=== PATIENT | female | born 1970 | race Two or more races ===

== ENCOUNTER 2022-02-05 04:45 | Inpatient (IN) | payer SELFPAY ==
[~2022-02-05] VITALS: Ht 165.1 cm; Wt 80.3 kg
--- NOTE | 2022-02-05 05:56 | PHYS DOC ---
Past Medical History Past Surgical History: Other Additional Past Surgical Histo: CYST ON INNER THIGHS (ЕЛЕНА DAVIES MD) Smoking Status: Never Smoker Alcohol Use: None (ЕЛЕНА DAVIES MD) Adult General Chief Complaint Chief Complaint: ABDOMINAL PAIN HPI HPI The patient is a 51-year-old female who presents for evaluation of epigastric and right upper quadrant abdominal discomfort in association with nonbloody vomiting, all with onset last evening about half an hour after eating. Discomfort is constant and radiates to the right back. Nothing seems to make it better or worse. Severity 9 out of 10 at present. 3 episodes of nonbloody vomiting since onset. No fevers, upper respiratory congestion/rhinorrhea, cough, sore throat, shortness of breath or chest pain of any kind, lower abdominal pain of any kind, midline back pain, dysuria, hematuria, polyuria or oliguria, unusual vaginal discharge or bleeding, changes in bowel habits. Patient is alert and appropriately interactive and in no acute distress with appropriate vital signs upon initial evaluation [facility] (ЕЛЕНА DAVIES MD) Review of Systems Review of Systems A 12 point review of systems was completed and was negative except where noted in HPI above. (ЕЛЕНА DAVIES MD) Current Medications Current Medications Current Medications Medications (Trade) Dose Ordered Sig/Nikita Start Time Stop Time Status Last Admin Dose Admin Famotidine (Pepcid Vial) 20 mg 1X ONCE 02/05/22 06:00 02/05/22 06:01 DC 02/05/22 06:00 20 MG Fentanyl Citrate (Fentanyl 2ml Vial) 50 mcg 1X ONCE 02/05/22 06:00 02/05/22 06:01 DC 02/05/22 06:03 35 MCG Multi-Ingredient Mouthwash/Gargle (Gi Cocktail) 20 ml 1X ONCE 02/05/22 06:00 02/05/22 06:01 DC 02/05/22 05:58 20 ML Ondansetron HCl (Zofran) 4 mg 1X ONCE 02/05/22 06:00 02/05/22 06:01 DC 02/05/22 05:59 4 MG Piperacillin Sod/ Tazobactam Sod 3.375 gm/Sodium Chloride 50 ml @ 100 mls/hr 1X ONCE 02/05/22 07:30 02/05/22 07:59 Sodium Chloride 1,000 ml @ 1,000 mls/hr 1X ONCE 02/05/22 06:00 02/05/22 06:59 DC 02/05/22 05:52 1,000 MLS/HR (STEPHANIE ÁLVAREZ MD) Allergies Allergies Allergies Coded Allergies Type Severity Reaction Last Updated Verified No Known Drug Allergies 02/05/22 No (STEPHANIE ÁLVAREZ MD) Physical Exam Physical Exam 51-year-old female appearing nontoxic and in no acute distress. Head is normocephalic and atraumatic. Neck is supple and nontender. Oropharynx is moist. Lungs are clear to auscultation at all stations. There is a normal S1 and S2 without rubs or gallops and capillary refill is appropriate, less than 2 seconds globally. Abdomen is soft, nondistended and with mild epigastric and right upper quadrant tenderness to palpation without rebound or guarding. No lower quadrant abdominal tenderness to palpation. Skin is warm and dry without cyanosis, clubbing or edema. Psychiatrically, the patient demonstrates appropriate mood and affect and is alert. (ЕЛЕНА DAVIES MD) Current Patient Data Vital Signs Vital Signs Date Time Temp Pulse Resp B/P (MAP) Pulse Ox O2 Delivery O2 Flow Rate FiO2 02/05/22 06:03 18 93 Room Air 02/05/22 05:54 76 135/76 (95) 02/05/22 04:50 98.6 98.6 (STEPHANIE ÁLVAREZ MD) Lab Values Laboratory Tests Test 02/05/22 04:55 02/05/22 04:56 02/05/22 05:50 Urine Collection Type Unknown Urine Color Yellow Urine Clarity Clear Urine pH 8.0 (<5.0-8.0) Urine Specific [place] 1.020 (1.000-1.030) Urine Protein Negative mg/dL (NEG-TRACE) Urine Glucose (UA) Negative mg/dL (NEG) Urine Ketones (Stick) Negative mg/dL (NEG) Urine Blood Negative (NEG) Urine Nitrite Negative (NEG) Urine Bilirubin Negative (NEG) Urine Urobilinogen Dipstick 1.0 mg/dL (0.2 mg/dL) Urine Leukocyte Esterase Negative (NEG) Urine RBC 0 /HPF (0-2) Urine WBC 0 /HPF (0-4) Urine Squamous Epithelial Cells Few /LPF Urine Amorphous Sediment Present /HPF Urine Bacteria 0 /HPF (0-FEW) Urine Mucus Mod /LPF POC Urine HCG, Qualitative Hcg negative (Negative) White Blood Count 8.0 x10^3/uL (4.0-11.0) Red Blood Count 4.39 x10^6/uL (3.50-5.40) Hemoglobin 12.0 g/dL (12.0-15.5) Hematocrit 35.3 % (36.0-47.0) L Mean Corpuscular Volume 81 fL (79-100) Mean Corpuscular Hemoglobin 27 pg (25-35) Mean Corpuscular Hemoglobin Concent 34 g/dL (31-37) Red Cell Distribution Width 13.4 % (11.5-14.5) Platelet Count 317 x10^3/uL (140-400) Neutrophils (%) (Auto) 67 % (31-73) Lymphocytes (%) (Auto) 24 % (24-48) Monocytes (%) (Auto) 8 % (0-9) Eosinophils (%) (Auto) 0 % (0-3) Basophils (%) (Auto) 1 % (0-3) Neutrophils # (Auto) 5.4 x10^3/uL (1.8-7.7) Lymphocytes # (Auto) 2.0 x10^3/uL (1.0-4.8) Monocytes # (Auto) 0.6 x10^3/uL (0.0-1.1) Eosinophils # (Auto) 0.0 x10^3/uL (0.0-0.7) Basophils # (Auto) 0.1 x10^3/uL (0.0-0.2) Sodium Level 139 mmol/L (136-145) Potassium Level 3.7 mmol/L (3.5-5.1) Chloride Level 103 mmol/L (98-107) Carbon Dioxide Level 25 mmol/L (21-32) Anion Gap 11 (6-14) Blood Urea Nitrogen 16 mg/dL (7-20) Creatinine 0.9 mg/dL (0.6-1.0) Estimated GFR (Cockcroft-Gault) 66.5 BUN/Creatinine Ratio 18 (6-20) Glucose Level 109 mg/dL (70-99) H Calcium Level 9.3 mg/dL (8.5-10.1) Total Bilirubin 1.0 mg/dL (0.2-1.0) Aspartate Amino Transferase (AST) 273 U/L (15-37) H Alanine Aminotransferase (ALT) 219 U/L (14-59) H Alkaline Phosphatase 129 U/L (46-116) H Total Protein 8.4 g/dL (6.4-8.2) H Albumin 3.9 g/dL (3.4-5.0) Albumin/Globulin Ratio 0.9 (1.0-1.7) L Lipase 104 U/L (73-393) Laboratory Tests 02/05/22 05:50 Laboratory Tests 02/05/22 05:50 (STEPHANIE ÁLVAREZ MD) EKG EKG [] (ЕЛЕНА DAVIES MD) Radiology/Procedures Radiology/Procedures [] (ЕЛЕНА DAVIES MD) Impressions: PATIENT: JOHN HUFFMANACCOUNT: [id number] : 1970 LOCATION: ER AGE: 51 SEX: F EXAM STATUS: REG ER ORD. PHYSICIAN: ЕЛЕНА DAVIES MD REASON: RUQ and epigastric pain, vomiting PROCEDURE: ABDOMEN LTD US ABDOMEN LIMITED History: Right upper quadrant, epigastric pain. Vomiting. Comparison: None. Technique: Sonographic examination of the right upper quadrant of the abdomen. Findings: Pancreas: Poorly visualized due to overlying bowel gas Liver: The liver measures 14.2 cm. Liver echotexture is diffusely echogenic. No focal hepatic lesions. Hepatopetal flow in the portal vein. Gallbladder: Distended gallbladder containing numerous echogenic gallstones. Wall thickening measuring 4.7 mm. The sonographic Mercado's sign is reportedly positive. Bile ducts: The common duct measures 6.6 mm. Right kidney: 10.7 cm length. No mass or hydronephrosis. Aorta/IVC: Visualized portions are unremarkable. Other: No ascites. Impression: 1. Cholelithiasis with gallbladder wall thickening and positive sonographic Mercado sign consistent with acute cholecystitis. 2. Hepatic steatosis. 3. Common bile duct measuring at the upper limits of normal. Electronically signed by: Dajuan Everett MD (02/05/2022 6:42 AM) [facility] DICTATED and SIGNED BY: DAJUAN EVERETT MD DATE: 02/05/22 [id number] (STEPHANIE ÁLVAREZ MD) Course & Med Decision Making Course & Med Decision Making Checking labs, EKG and right upper quadrant ultrasound as noted and will then reevaluate. Giving IV fluids and medication as per flowsheet for symptom management. 0600: Transition of care to Dr. Álvarez pending labs, imaging and reevaluation for disposition. (ЕЛЕНА DAVIES MD) Course & Med Decision Making This 51-year-old female signed out to me at shift change with right upper quadrant ultrasound pending. Ultrasound indicative of cholecystitis as is lab studies. I spoke with the surgeon as well as hospitalist, patient was given a dose of IV antibiotics and kept in the hospital for definitive management. She is in stable condition currently. (STEPHANIE ÁLVAREZ MD) Dragon Disclaimer Dragon Disclaimer This electronic medical record was generated, in whole or in part, using a voice recognition dictation system. (ЕЛЕНА DAVIES MD) Departure Departure Impression: Primary Impression: Abdominal pain, acute, epigastric Additional Impressions: Right upper quadrant abdominal pain Acute vomiting Cholecystitis Disposition: ADMITTED INPATIENT Condition: STABLE Referrals: NO PCP (PCP) Problem Qualifiers ЕЛЕНА DAVIES MD Feb 05, 2022 05:56 STEPHANIE ÁLVAREZ MD Feb 05, 2022 07:41
[2022-02-05] MEDS ORDERED: LIDO:MAALOX 1:1 20 ML SINGLE DOSE. SWSW ONE (06:00)
[2022-02-05] MEDS ORDERED: IV NORMAL SALINE 1000ML BAG 1,000 ML IV ONE (06:00)
[2022-02-05] MEDS ORDERED: ONDANSETRON PF 4 MG/2 ML VIAL. IVP ONE (06:00)
[2022-02-05] MEDS ORDERED: FAMOTIDINE 20 MG/2 ML VIAL IVP ONE (06:00)
[2022-02-05] MEDS ORDERED: fentaNYL PF VIAL 100 MCG/2 ML VIAL IVP ONE (06:00)
[2022-02-05 06:18] LABS: AMORPHOUS SEDIMENT,UR PRESENT /HPF; BACTERIA,URINE 0 /HPF (0-FEW); BILIRUBIN,URINE NEGATIVE (NEG); CLARITY,URINE CLEAR; COLOR,URINE YELLOW; NITRITE,URINE NEGATIVE (NEG); PROTEIN,URINE NEGATIVE (NEG-TRACE); RBC,URINE 0 /HPF (0-2); WBC,URINE 0 /HPF (0-4)
[2022-02-05 06:35] LABS: BASO # 0.1 x10^3/uL (0.0-0.2); BASO % 1 % (0-3); EOS % 0 % (0-3); HEMATOCRIT 35.3 % (36.0-47.0); LYMPH % 24 % (24-48); MEAN CORPUSCULAR HEMOGLOBIN 27 pg (25-35); MEAN CORPUSCULAR HGB CONC 34 g/dL (31-37); MEAN CORPUSCULAR VOLUME 81 fL (79-100); MONO # 0.6 x10^3/uL (0.0-1.1); MONO % 8 % (0-9); NEUT # 5.4 x10^3/uL (1.8-7.7); NEUT % 67 % (31-73); PLATELET COUNT 317 x10^3/uL (140-400); RED BLOOD COUNT 4.39 x10^6/uL (3.50-5.40); RED CELL DISTRIBUTION WIDTH 13.4 % (11.5-14.5)
--- NOTE | 2022-02-05 06:45 | RAD ---
US ABDOMEN LIMITED History: Right upper quadrant, epigastric pain. Vomiting. Comparison: None. Technique: Sonographic examination of the right upper quadrant of the abdomen. Findings: Pancreas: Poorly visualized due to overlying bowel gas Liver: The liver measures 14.2 cm. Liver echotexture is diffusely echogenic. No focal hepatic lesio ns. Hepatopetal flow in the portal vein. Gallbladder: Distended gallbladder containing numerous echogenic gallstones. Wall thickening measurin g 4.7 mm. The sonographic Mercado's sign is reportedly positive. Bile ducts: The common duct measures 6.6 mm. Right kidney: 10.7 cm length. No mass or hydronephrosis. Aorta/IVC: Visualized portions are unremarkable. Other: No ascites. Impression: 1. Cholelithiasis with gallbladder wall thickening and positive sonographic Mercado sign consistent w ith acute cholecystitis. 2. Hepatic steatosis. 3. Common bile duct measuring at the upper limits of normal. Electronically signed by: Dajuan Lutz MD (02/05/2022 6:42 AM) [facility]
[2022-02-05 06:50] LABS: CALCIUM 9.3 mg/dL (8.5-10.1); CREATININE 0.9 mg/dL (0.6-1.0); GFR 66.5; POTASSIUM 3.7 mmol/L (3.5-5.1)
[2022-02-05 07:00] LABS: ALBUMIN 3.9 g/dL (3.4-5.0); ALBUMIN/GLOBULIN RATIO 0.9 (1.0-1.7); TOTAL PROTEIN 8.4 g/dL (6.4-8.2)
[2022-02-05] MEDS ORDERED: PIPERACILLIN/TAZOBACTAM 3.375 GM in IV NORMAL SALINE 50ML 50 ML IV ONE (07:30)
--- NOTE | 2022-02-05 07:34 | PDOC1 ---
History and Physical Date of Admission Date of Admission DATE: 02/05/22 TIME: 07:32 Identification/Chief Complaint Chief Complaint Abdominal pain Source Source: Patient History of Present Illness History of Present Illness Ms Marin is a 51 yo female, primarily zimbabwean-speaking, with no PMHx who presents to ED overnight with epigastric and RUQ abdominal pain with associated vomiting. This occurred 02/04/22 in the evening about half an hour after eating. Discomfort is constant and radiates to the right back. Food made it worse, and initially Mylanta improved her symptoms but pain has become progressive and she began vomiting overnight x 3 episodes of nonbloody vomiting. Pain was 9/10 and with morphine improved to 3/10. No fevers, upper respiratory congestion/rhinorrhea, cough, sore throat, shortness of breath or chest pain of any kind, lower abdominal pain of any kind, midline back pain, dysuria, hematuria, polyuria or oliguria, unusual vaginal discharge or bleeding, changes in bowel habits. [employer] used. Patient notes over the past 6 years she has had this problem episodically every few months but over the past week she has had 3 episodes after eating with pain and nausea. No recent travel or sick contacts. WBC 8, Hb 12, platelets 370, NA 139, K3.7, BUN 16, CR 0.9, glucose 109, calcium 9.3, bilirubin 1, AST 273, ALT 219, alkaline phosphatase 129, albumin 3.9, l ipase 104, urinalysis negative , otherwise bland. Ultrasound reveals cholelithiasis gallbladder wall thickening positive sonographic Mercado sign and hepatic steatosis. CBD 6.6 mm. Admitted for further care. Past Medical History Cardiovascular: No pertinent hx Past Surgical History Past Surgical History: Other (abscess I&D left labia) Family History Family History: High Cholestrol, Hypertension Social History Smoke: No ALCOHOL: none Drugs: None Current Problem List Problem List Problems Medical Problems: (1) Abdominal pain, acute, epigastric Status: Acute (2) Acute vomiting Status: Acute (3) Right upper quadrant abdominal pain Status: Acute Current Medications Current Medications Current Medications Famotidine (Pepcid Vial) 20 mg 1X ONCE IVP Last administered on 02/05/22at 06:00; Start 02/05/22 at 06:00; Stop 02/05/22 at 06:01; Status DC Ondansetron HCl (Zofran) 4 mg 1X ONCE IVP Last administered on 02/05/22at 05:59; Start 02/05/22 at 06:00; Stop 02/05/22 at 06:01; Status DC Multi-Ingredient Mouthwash/Gargle (Gi Cocktail) 20 ml 1X ONCE SWSW Last administered on 02/05/22at 05:58; Start 02/05/22 at 06:00; Stop 02/05/22 at 06:01; Status DC Fentanyl Citrate (Fentanyl 2ml Vial) 50 mcg 1X ONCE IVP Last administered on 02/05/22at 06:03; Start 02/05/22 at 06:00; Stop 02/05/22 at 06:01; Status DC Sodium Chloride 1,000 ml @ 1,000 mls/hr 1X ONCE IV Last administered on 02/05/22at 05:52; Start 02/05/22 at 06:00; Stop 02/05/22 at 06:59; Status DC Piperacillin Sod/ Tazobactam Sod 3.375 gm/Sodium Chloride 50 ml @ 100 mls/hr 1X ONCE IV ; Start 02/05/22 at 07:30; Stop 02/05/22 at 07:59; Status UNV Allergies Allergies: Coded Allergies: No Known Drug Allergies (Unverified , 02/05/22) ROS General: YES: Fatigue, Malaise, Appetite; No: Chills, Night Sweats, Other PSYCHOLOGICAL ROS: No: Anxiety, Behavioral Disorder, Concentration difficultie, Decreased libido, Depression, Disorientation, Hallucinations, Hostility, Irritablity, Memory difficulties, Mood Swings, Obsessive thoughts, Physical abuse, Sexual abuse, Sleep disturbances, Suicidal ideation, Other Eyes: No Blurry vision, No Decreased vision, No Double vision, No Dry eyes, No Excessive tearing, No Eye Pain, No Itchy Eyes, No Loss of vision, No Photophobia, No Scotomata, No Uses contacts, No Uses glasses, No Other HEENT: No: Heacaches, Visual Changes, Hearing change, Nasal congestion, Nasal discharge, Oral lesions, Sinus pain, Sore Throat, Epistaxis, Sneezing, Snoring, Tinnitus, Vertigo, Vocal changes, Other ALLERGY AND IMMUNOLOGY: No: Hives, Insect Bite Sensitivity, Itchy/Watery Eyes, Nasal Congestion, Post Nasal Drip, Seasonal Allergies, Other Hematological and Lymphatic: No: Bleeding Problems, Blood Clots, Blood Transfusions, Brusing, Night Sweats, Pallor, Swollen Lymph Nodes, Other ENDOCRINE: No: Breast Changes, Galactorrhea, Hair Pattern Changes, Hot Flashes, Malaise/lethargy, Mood Swings, Palpitations, Polydipsia/polyuria, Skin Changes, Temperature Intolerance, Unexpected Weight Changes, Other Breast: No New/Changing Breast Lumps, No Nipple changes, No Nipple discharge, No Other Respiratory: No: Cough, Hemoptysis, Orthopnea, Pleuritic Pain, Shortness of breath, SOB with excertion, Sputum Changes, Stridor, Tachypnea, Wheezing, Other Cardiovascular: No Chest Pain, No Palpitations, No Orthopnea, No Paroxysmal Noc. Dyspnea, No Edema, No Lt Headedness, No Other Gastrointestinal: Yes Nausea, Yes Vomiting, Yes Abdominal Pain; No Diarrhea, No Constipation, No Melena, No Hematochezia, No Other Genitourinary: No Dysuria, No Frequency, No Incontinence, No Hematuria, No Retention, No Discharge, No Urgency, No Pain, No Flank Pain, No Other, No , No , No , No , No , No , No Musculoskeletal: No Gait Disturbance, No Joint Pain, No Joint Stiffness, No Joint Swelling, No Muscle Pain, No Muscular Weakness, No Pain In:, No Swelling In:, No Other Neurological: No Behavorial Changes, No Bowel/Bladder ControlChng, No Confusion, No Dizziness, No Gait Disturbance, No Headaches, No Impaired Coord/balance, No Memory Loss, No Numbness/Tingling, No Seizures, No Speech Problems, No Tremors, No Visual Changes, No Weakness, No Other Skin: No Dry Skin, No Eczema, No Hair Changes, No Lumps, No Mole Changes, No Mottling, No Nail Changes, No Pruritus, No Rash, No Skin Lesion Changes, No Other, No Acne Physical Exam General: Alert, Oriented X3, Cooperative, moderate distress HEENT: Atraumatic, PERRLA, EOMI, Mucous membr. moist/pink Lungs: Clear to auscultation, Normal air movement Heart: S1S2, RRR, no thrills, no rubs, no gallops, no murmurs Abdomen: Normal bowel sounds, Soft, No hepatosplenomegaly, No masses, Other (Epigastric tenderness) Rectal Exam: not examined Extremities: No clubbing, No cyanosis, No edema, Normal pulses, No tenderness/swelling Skin: No rashes, No breakdown, No significant lesion Neuro: Normal gait, Normal speech, Strength at 5/5 X4 ext, Normal tone, Sensation intact, Cranial nerves 3-12 NL, Reflexes 2+ Psych/Mental Status: Mental status NL, Mood NL Vitals Vitals Vital Signs Date Time Temp Pulse Resp B/P (MAP) Pulse Ox O2 Delivery O2 Flow Rate FiO2 02/05/22 06:03 18 93 Room Air 02/05/22 05:54 76 135/76 (95) 02/05/22 04:50 98.6 98.6 Labs Labs Laboratory Tests Test 02/05/22 04:55 02/05/22 04:56 02/05/22 05:50 Urine Collection Type Unknown Urine Color Yellow Urine Clarity Clear Urine pH 8.0 (<5.0-8.0) Urine Specific [place] 1.020 (1.000-1.030) Urine Protein Negative mg/dL (NEG-TRACE) Urine Glucose (UA) Negative mg/dL (NEG) Urine Ketones (Stick) Negative mg/dL (NEG) Urine Blood Negative (NEG) Urine Nitrite Negative (NEG) Urine Bilirubin Negative (NEG) Urine Urobilinogen Dipstick 1.0 mg/dL (0.2 mg/dL) Urine Leukocyte Esterase Negative (NEG) Urine RBC 0 /HPF (0-2) Urine WBC 0 /HPF (0-4) Urine Squamous Epithelial Cells Few /LPF Urine Amorphous Sediment Present /HPF Urine Bacteria 0 /HPF (0-FEW) Urine Mucus Mod /LPF Bedside Urine HCG, Qualitative Hcg negative (Negative) White Blood Count 8.0 x10^3/uL (4.0-11.0) Red Blood Count 4.39 x10^6/uL (3.50-5.40) Hemoglobin 12.0 g/dL (12.0-15.5) Hematocrit 35.3 % (36.0-47.0) Mean Corpuscular Volume 81 fL (79-100) Mean Corpuscular Hemoglobin 27 pg (25-35) Mean Corpuscular Hemoglobin Concent 34 g/dL (31-37) Red Cell Distribution Width 13.4 % (11.5-14.5) Platelet Count 317 x10^3/uL (140-400) Neutrophils (%) (Auto) 67 % (31-73) Lymphocytes (%) (Auto) 24 % (24-48) Monocytes (%) (Auto) 8 % (0-9) Eosinophils (%) (Auto) 0 % (0-3) Basophils (%) (Auto) 1 % (0-3) Neutrophils # (Auto) 5.4 x10^3/uL (1.8-7.7) Lymphocytes # (Auto) 2.0 x10^3/uL (1.0-4.8) Monocytes # (Auto) 0.6 x10^3/uL (0.0-1.1) Eosinophils # (Auto) 0.0 x10^3/uL (0.0-0.7) Basophils # (Auto) 0.1 x10^3/uL (0.0-0.2) Sodium Level 139 mmol/L (136-145) Potassium Level 3.7 mmol/L (3.5-5.1) Chloride Level 103 mmol/L (98-107) Carbon Dioxide Level 25 mmol/L (21-32) Anion Gap 11 (6-14) Blood Urea Nitrogen 16 mg/dL (7-20) Creatinine 0.9 mg/dL (0.6-1.0) Estimated GFR (Cockcroft-Gault) 66.5 BUN/Creatinine Ratio 18 (6-20) Glucose Level 109 mg/dL (70-99) Calcium Level 9.3 mg/dL (8.5-10.1) Total Bilirubin 1.0 mg/dL (0.2-1.0) Aspartate Amino Transf (AST/SGOT) 273 U/L (15-37) Alanine Aminotransferase (ALT/SGPT) 219 U/L (14-59) Alkaline Phosphatase 129 U/L (46-116) Total Protein 8.4 g/dL (6.4-8.2) Albumin 3.9 g/dL (3.4-5.0) Albumin/Globulin Ratio 0.9 (1.0-1.7) Lipase 104 U/L (73-393) Laboratory Tests Test 02/05/22 04:55 02/05/22 04:56 02/05/22 05:50 Urine Collection Type Unknown Urine Color Yellow Urine Clarity Clear Urine pH 8.0 (<5.0-8.0) Urine Specific [place] 1.020 (1.000-1.030) Urine Protein Negative mg/dL (NEG-TRACE) Urine Glucose (UA) Negative mg/dL (NEG) Urine Ketones (Stick) Negative mg/dL (NEG) Urine Blood Negative (NEG) Urine Nitrite Negative (NEG) Urine Bilirubin Negative (NEG) Urine Urobilinogen Dipstick 1.0 mg/dL (0.2 mg/dL) Urine Leukocyte Esterase Negative (NEG) Urine RBC 0 /HPF (0-2) Urine WBC 0 /HPF (0-4) Urine Squamous Epithelial Cells Few /LPF Urine Amorphous Sediment Present /HPF Urine Bacteria 0 /HPF (0-FEW) Urine Mucus Mod /LPF Bedside Urine HCG, Qualitative Hcg negative (Negative) White Blood Count 8.0 x10^3/uL (4.0-11.0) Red Blood Count 4.39 x10^6/uL (3.50-5.40) Hemoglobin 12.0 g/dL (12.0-15.5) Hematocrit 35.3 % (36.0-47.0) Mean Corpuscular Volume 81 fL (79-100) Mean Corpuscular Hemoglobin 27 pg (25-35) Mean Corpuscular Hemoglobin Concent 34 g/dL (31-37) Red Cell Distribution Width 13.4 % (11.5-14.5) Platelet Count 317 x10^3/uL (140-400) Neutrophils (%) (Auto) 67 % (31-73) Lymphocytes (%) (Auto) 24 % (24-48) Monocytes (%) (Auto) 8 % (0-9) Eosinophils (%) (Auto) 0 % (0-3) Basophils (%) (Auto) 1 % (0-3) Neutrophils # (Auto) 5.4 x10^3/uL (1.8-7.7) Lymphocytes # (Auto) 2.0 x10^3/uL (1.0-4.8) Monocytes # (Auto) 0.6 x10^3/uL (0.0-1.1) Eosinophils # (Auto) 0.0 x10^3/uL (0.0-0.7) Basophils # (Auto) 0.1 x10^3/uL (0.0-0.2) Sodium Level 139 mmol/L (136-145) Potassium Level 3.7 mmol/L (3.5-5.1) Chloride Level 103 mmol/L (98-107) Carbon Dioxide Level 25 mmol/L (21-32) Anion Gap 11 (6-14) Blood Urea Nitrogen 16 mg/dL (7-20) Creatinine 0.9 mg/dL (0.6-1.0) Estimated GFR (Cockcroft-Gault) 66.5 BUN/Creatinine Ratio 18 (6-20) Glucose Level 109 mg/dL (70-99) Calcium Level 9.3 mg/dL (8.5-10.1) Total Bilirubin 1.0 mg/dL (0.2-1.0) Aspartate Amino Transf (AST/SGOT) 273 U/L (15-37) Alanine Aminotransferase (ALT/SGPT) 219 U/L (14-59) Alkaline Phosphatase 129 U/L (46-116) Total Protein 8.4 g/dL (6.4-8.2) Albumin 3.9 g/dL (3.4-5.0) Albumin/Globulin Ratio 0.9 (1.0-1.7) Lipase 104 U/L (73-393) Images Images RUQ ultrasound: Pancreas: Poorly visualized due to overlying bowel gas Liver: The liver measures 14.2 cm. Liver echotexture is diffusely echogenic. No focal hepatic lesions. Hepatopetal flow in the portal vein. Gallbladder: Distended gallbladder containing numerous echogenic gallstones. Wall thickening measuring 4.7 mm. The sonographic Mercado's sign is reportedly positive. Bile ducts: The common duct measures 6.6 mm. Right kidney: 10.7 cm length. No mass or hydronephrosis. Aorta/IVC: Visualized portions are unremarkable. Other: No ascites. Impression: 1. Cholelithiasis with gallbladder wall thickening and positive sonographic Mercdao sign consistent with acute cholecystitis. 2. Hepatic steatosis. 3. Common bile duct measuring at the upper limits of normal. VTE Prophylaxis Ordered VTE Prophylaxis Devices: Yes VTE Pharmacological Prophylaxi: No Assessment/Plan Assessment/Plan A/P: Acute calculous cholecystitis - confirmed with ultrasound. NPO. general surgery consulted. IV pain and nausea control FEN - NPO PPX - SCDs FULL CODE Dispo - inpatient Justifications for Admission Other Justification JANICE WILKINSON MD Feb 05, 2022 07:34
--- NOTE | 2022-02-05 09:17 | PDOC2 ---
CONSULT Date of Consult Date of Consult DATE: 02/05/22 TIME: 09:06 Reason for Consult Reason for Consult: cholecystitis Referring Physician Referring Physician: ER Identification/Chief Complaint Chief Complaint abdominal pain Source Source: Chart review, Patient History of Present Illness Reason for Visit: Acute onset of abdominal pain, nausea and emesis. Has had similar symptoms in past. Has been occurring more frequently. Yesterday did not improved Pain is epigastric and RUQ area She also is concerned about abscess in rectal area. This occur intermittently, says she takes and pill and causes it to burst. Started last week, took pill only drained a small amount and has still been bothering her Past Medical History Cardiovascular: No pertinent hx Past Surgical History Past Surgical History: Other (abscess I&D left labia) Family History Family History: High Cholestrol, Hypertension Social History No ALCOHOL: none Drugs: None Current Problem List Problem List Problems Medical Problems: (1) Abdominal pain, acute, epigastric Status: Acute (2) Acute vomiting Status: Acute (3) Cholecystitis Status: Acute (4) Right upper quadrant abdominal pain Status: Acute Current Medications Current Medications Current Medications Famotidine (Pepcid Vial) 20 mg 1X ONCE IVP Last administered on 02/05/22at 06:00; Start 02/05/22 at 06:00; Stop 02/05/22 at 06:01; Status DC Ondansetron HCl (Zofran) 4 mg 1X ONCE IVP Last administered on 02/05/22at 05:59; Start 02/05/22 at 06:00; Stop 02/05/22 at 06:01; Status DC Multi-Ingredient Mouthwash/Gargle (Gi Cocktail) 20 ml 1X ONCE SWSW Last administered on 02/05/22at 05:58; Start 02/05/22 at 06:00; Stop 02/05/22 at 06:01; Status DC Fentanyl Citrate (Fentanyl 2ml Vial) 50 mcg 1X ONCE IVP Last administered on 02/05/22at 06:03; Start 02/05/22 at 06:00; Stop 02/05/22 at 06:01; Status DC Sodium Chloride 1,000 ml @ 1,000 mls/hr 1X ONCE IV Last administered on 02/05/22at 05:52; Start 02/05/22 at 06:00; Stop 02/05/22 at 06:59; Status DC Piperacillin Sod/ Tazobactam Sod 3.375 gm/Sodium Chloride 50 ml @ 100 mls/hr 1X ONCE IV Last administered on 02/05/22at 07:41; Start 02/05/22 at 07:30; Stop 02/05/22 at 07:59; Status DC Allergies Allergies: Coded Allergies: No Known Drug Allergies (Unverified , 02/05/22) ROS General: No: Chills, Other (fevers ) PSYCHOLOGICAL ROS: No: Anxiety, Depression Eyes: No Blurry vision, No Double vision HEENT: No: Heacaches, Sore Throat Respiratory: No: Cough, SOB with excertion Cardiovascular: No Chest Pain, No Palpitations Gastrointestinal: Yes Other (see hpi) Genitourinary: No Dysuria, No Retention Musculoskeletal: No Joint Pain, No Muscle Pain Neurological: No Impaired Coord/balance Skin: Yes Other (see hpi) Physical Exam General: Alert, Oriented X3, Cooperative HEENT: Atraumatic, PERRLA Lungs: Clear to auscultation, Normal air movement Heart: Regular rate, Normal S1, Normal S2 Abdomen: Soft, Other (RUQ TTP ) Extremities: No clubbing, No cyanosis Skin: Other (noted right perirectal area with tenderness, induration, fluctunant area ) Neuro: Normal speech, Sensation intact Psych/Mental Status: Mental status NL, Mood NL MUSCULOSKELETAL: No deformity, No swelling Vitals VITALS Vital Signs Date Time Temp Pulse Resp B/P (MAP) Pulse Ox O2 Delivery O2 Flow Rate FiO2 02/05/22 07:24 98.6 77 16 118/64 (82) 99 Room Air 98.6 Labs Labs Laboratory Tests Test 02/05/22 04:55 02/05/22 04:56 02/05/22 05:50 Urine Collection Type Unknown Urine Color Yellow Urine Clarity Clear Urine pH 8.0 (<5.0-8.0) Urine Specific [place] 1.020 (1.000-1.030) Urine Protein Negative mg/dL (NEG-TRACE) Urine Glucose (UA) Negative mg/dL (NEG) Urine Ketones (Stick) Negative mg/dL (NEG) Urine Blood Negative (NEG) Urine Nitrite Negative (NEG) Urine Bilirubin Negative (NEG) Urine Urobilinogen Dipstick 1.0 mg/dL (0.2 mg/dL) Urine Leukocyte Esterase Negative (NEG) Urine RBC 0 /HPF (0-2) Urine WBC 0 /HPF (0-4) Urine Squamous Epithelial Cells Few /LPF Urine Amorphous Sediment Present /HPF Urine Bacteria 0 /HPF (0-FEW) Urine Mucus Mod /LPF Bedside Urine HCG, Qualitative Hcg negative (Negative) White Blood Count 8.0 x10^3/uL (4.0-11.0) Red Blood Count 4.39 x10^6/uL (3.50-5.40) Hemoglobin 12.0 g/dL (12.0-15.5) Hematocrit 35.3 % (36.0-47.0) Mean Corpuscular Volume 81 fL (79-100) Mean Corpuscular Hemoglobin 27 pg (25-35) Mean Corpuscular Hemoglobin Concent 34 g/dL (31-37) Red Cell Distribution Width 13.4 % (11.5-14.5) Platelet Count 317 x10^3/uL (140-400) Neutrophils (%) (Auto) 67 % (31-73) Lymphocytes (%) (Auto) 24 % (24-48) Monocytes (%) (Auto) 8 % (0-9) Eosinophils (%) (Auto) 0 % (0-3) Basophils (%) (Auto) 1 % (0-3) Neutrophils # (Auto) 5.4 x10^3/uL (1.8-7.7) Lymphocytes # (Auto) 2.0 x10^3/uL (1.0-4.8) Monocytes # (Auto) 0.6 x10^3/uL (0.0-1.1) Eosinophils # (Auto) 0.0 x10^3/uL (0.0-0.7) Basophils # (Auto) 0.1 x10^3/uL (0.0-0.2) Sodium Level 139 mmol/L (136-145) Potassium Level 3.7 mmol/L (3.5-5.1) Chloride Level 103 mmol/L (98-107) Carbon Dioxide Level 25 mmol/L (21-32) Anion Gap 11 (6-14) Blood Urea Nitrogen 16 mg/dL (7-20) Creatinine 0.9 mg/dL (0.6-1.0) Estimated GFR (Cockcroft-Gault) 66.5 BUN/Creatinine Ratio 18 (6-20) Glucose Level 109 mg/dL (70-99) Calcium Level 9.3 mg/dL (8.5-10.1) Total Bilirubin 1.0 mg/dL (0.2-1.0) Aspartate Amino Transf (AST/SGOT) 273 U/L (15-37) Alanine Aminotransferase (ALT/SGPT) 219 U/L (14-59) Alkaline Phosphatase 129 U/L (46-116) Total Protein 8.4 g/dL (6.4-8.2) Albumin 3.9 g/dL (3.4-5.0) Albumin/Globulin Ratio 0.9 (1.0-1.7) Lipase 104 U/L (73-393) Laboratory Tests Test 02/05/22 04:55 02/05/22 04:56 02/05/22 05:50 Urine Collection Type Unknown Urine Color Yellow Urine Clarity Clear Urine pH 8.0 (<5.0-8.0) Urine Specific [place] 1.020 (1.000-1.030) Urine Protein Negative mg/dL (NEG-TRACE) Urine Glucose (UA) Negative mg/dL (NEG) Urine Ketones (Stick) Negative mg/dL (NEG) Urine Blood Negative (NEG) Urine Nitrite Negative (NEG) Urine Bilirubin Negative (NEG) Urine Urobilinogen Dipstick 1.0 mg/dL (0.2 mg/dL) Urine Leukocyte Esterase Negative (NEG) Urine RBC 0 /HPF (0-2) Urine WBC 0 /HPF (0-4) Urine Squamous Epithelial Cells Few /LPF Urine Amorphous Sediment Present /HPF Urine Bacteria 0 /HPF (0-FEW) Urine Mucus Mod /LPF Bedside Urine HCG, Qualitative Hcg negative (Negative) White Blood Count 8.0 x10^3/uL (4.0-11.0) Red Blood Count 4.39 x10^6/uL (3.50-5.40) Hemoglobin 12.0 g/dL (12.0-15.5) Hematocrit 35.3 % (36.0-47.0) Mean Corpuscular Volume 81 fL (79-100) Mean Corpuscular Hemoglobin 27 pg (25-35) Mean Corpuscular Hemoglobin Concent 34 g/dL (31-37) Red Cell Distribution Width 13.4 % (11.5-14.5) Platelet Count 317 x10^3/uL (140-400) Neutrophils (%) (Auto) 67 % (31-73) Lymphocytes (%) (Auto) 24 % (24-48) Monocytes (%) (Auto) 8 % (0-9) Eosinophils (%) (Auto) 0 % (0-3) Basophils (%) (Auto) 1 % (0-3) Neutrophils # (Auto) 5.4 x10^3/uL (1.8-7.7) Lymphocytes # (Auto) 2.0 x10^3/uL (1.0-4.8) Monocytes # (Auto) 0.6 x10^3/uL (0.0-1.1) Eosinophils # (Auto) 0.0 x10^3/uL (0.0-0.7) Basophils # (Auto) 0.1 x10^3/uL (0.0-0.2) Sodium Level 139 mmol/L (136-145) Potassium Level 3.7 mmol/L (3.5-5.1) Chloride Level 103 mmol/L (98-107) Carbon Dioxide Level 25 mmol/L (21-32) Anion Gap 11 (6-14) Blood Urea Nitrogen 16 mg/dL (7-20) Creatinine 0.9 mg/dL (0.6-1.0) Estimated GFR (Cockcroft-Gault) 66.5 BUN/Creatinine Ratio 18 (6-20) Glucose Level 109 mg/dL (70-99) Calcium Level 9.3 mg/dL (8.5-10.1) Total Bilirubin 1.0 mg/dL (0.2-1.0) Aspartate Amino Transf (AST/SGOT) 273 U/L (15-37) Alanine Aminotransferase (ALT/SGPT) 219 U/L (14-59) Alkaline Phosphatase 129 U/L (46-116) Total Protein 8.4 g/dL (6.4-8.2) Albumin 3.9 g/dL (3.4-5.0) Albumin/Globulin Ratio 0.9 (1.0-1.7) Lipase 104 U/L (73-393) Assessment/Plan Assessment/Plan cholecystitis perirectal abscess will plan OR RIANA COREAS APRN Feb 05, 2022 09:17
--- NOTE | 2022-02-05 11:05 | NUR ---
pt transported from ER to 422, care resumed of patient. Vitals taken and admission completed.
[2022-02-05 11:25] VITALS: BP 108/70
--- NOTE | 2022-02-05 13:16 | NUR ---
DR MINH STORY, VO FOR MORPHINE 2MG Q3 PRN FOR PAIN, TRAMADOL 50MG Q6 PRN FOR PAIN, AND ORDERS FOR LACTACTED RINGERS AT 75 ML/HR FOR A TOTAL OF 2 BAGS.
[2022-02-05] MEDS ORDERED: traMADol 50 MG TABLET PO PRN (13:30)
[2022-02-05] MEDS: IV RINGERS,LACTATED 1000ML 1,000 ML IV SCH (13:30)
[2022-02-05] MEDS: MORPHINE SULFATE 2 MG/ML INJ. IVP PRN (14:20)
[2022-02-05 15:00] VITALS: BP 117/69
[2022-02-05 19:15] VITALS: BP 110/72
[2022-02-05 22:59] VITALS: BP 108/66
[2022-02-06] VITALS (12 sets, daily range): BP systolic 100–124; BP diastolic 50–81
[2022-02-06] MEDS: IV RINGERS,LACTATED 1000ML 1,000 ML IV SCH ×3 (02:50→15:54)
[2022-02-06] MEDS ORDERED: HYDROmorphone 2 MG/ML INJ. IVP PRN (06:00)
[2022-02-06] MEDS ORDERED: PROCHLORPERAZINE 10 MG/2 ML VIAL. IVP PRN (06:00)
[2022-02-06] MEDS ORDERED: fentaNYL PF VIAL 100 MCG/2 ML VIAL IVP PRN ×2 (06:00)
--- NOTE | 2022-02-06 10:06 | NUR ---
SW following. Discussed with RN, pt from home, room air, clear liquid diet, rapid COVID-19 negative. Surgery following - plans for surgery today, per RN. Med Assist following for self pay status. SW will continue to follow.
[2022-02-06] MEDS ORDERED: LIDOCAINE 1% PF 5 ML VIAL. ONE (11:31)
[2022-02-06] MEDS ORDERED: fentaNYL PF VIAL 100 MCG/2 ML VIAL ONE (11:31)
[2022-02-06] MEDS ORDERED: DEXAMETHASONE SOD PHOS 4 MG/ML VIAL ONE (11:31)
[2022-02-06] MEDS ORDERED: PROPOFOL 10 MG/ML (20ML) VIAL. IV ONE (11:31)
[2022-02-06] MEDS ORDERED: ONDANSETRON PF 4 MG/2 ML VIAL. ONE (11:31)
[2022-02-06] MEDS ORDERED: MULT-245 PO (12:33)
[2022-02-06] MEDS ORDERED: ceFAZolin 2GM PREMIX 2 GM/50 ML BAG IV ONE (13:15)
[2022-02-06] MEDS ORDERED: SURGICEL HEMOSTAT 4X8 EACH. ONE (13:31)
[2022-02-06] MEDS ORDERED: IOHEXOL 300 MG/ML 50 ML VIAL. ONE (13:31)
[2022-02-06] MEDS ORDERED: BUPIVACAINE-EPI 0.5% 30 ML VIAL KIT. ONE (13:31)
--- NOTE | 2022-02-06 13:34 | PDOC ---
[employer] PROGRESS NOTE Date of Service DOS: DATE: 02/06/22 TIME: 13:33 Chief Complaint Chief Complaint Acute calculous cholecystitis - confirmed with ultrasound. surg planned tody . IV pain and nausea control History of Present Illness History of Present Illness OR today FEN - NPO, will adat after surg, PPX - SCDs Vitals/I&O Vitals/I&O: Vital Signs Date Time Temp Pulse Resp B/P (MAP) Pulse Ox O2 Delivery O2 Flow Rate FiO2 02/06/22 12:25 98.6 82 15 125/71 95 Room Air 98.6 I & O 02/05/22 02/05/22 02/06/22 15:00 23:00 07:00 Intake Total 1000 ml 240 ml Balance 1000 ml 240 ml Physical Exam General: Alert, Oriented X3, Cooperative Heart: Regular rate, Normal S1, Normal S2 Abdomen: Soft, Other (RUQ TTP ) Extremities: No clubbing, No cyanosis Skin: Other (noted right perirectal area with tenderness, induration, fluctunant area ) Labs Labs: Laboratory Tests Test 02/05/22 14:09 SARS-CoV-2 Antigen (Rapid) Negative (NEGATIVE) Assessment and Plan Assessmemt and Plan Problems Medical Problems: (1) Abdominal pain, acute, epigastric Status: Acute (2) Acute vomiting Status: Acute (3) Cholecystitis Status: Acute (4) Right upper quadrant abdominal pain Status: Acute Comment Review of Relevant I have reviewed the following items rashid (where applicable) has been applied. Justifications for Admission Other Justification GALE MAC MD Feb 06, 2022 13:34
[2022-02-06] MEDS ORDERED: HYDROmorphone 2 MG/ML INJ. ONE (14:25)
[2022-02-06] MEDS ORDERED: GLYCOPYRROLATE 1 MG/5 ML VIAL. ONE (14:28)
[2022-02-06] MEDS ORDERED: SUGAMMADEX SODIUM 200 MG/2 ML VIAL. IVP ONE (15:00)
--- NOTE | 2022-02-06 15:00 | RAD ---
INDICATION: Reason: CHOLANGIOGRAMS IN OR WITH C-ARM / Spl. Instructions: 27.7 S; 4 IMAGES / History: . Fluoro for procedure. IMPRESSION: Fluoroscopy was utilized by the clinical service to assist with their procedure. There are 4 saved images/series. The limited saved images show surgical instruments at the upper abdomen with contrast injection of th e bile duct with contrast seen within the common bile duct. There are multiple small filling defects within which could be from either air bubble or stone/debris within the bile ducts. No significant co ntrast is seen extending into the duodenum which could be secondary to early injection but obstructio n at common bile duct is not excluded. 28 seconds of fluoroscopy time was used. This dictation is for the usage of fluoroscopy only. Please see the clinical service's procedure note for detail on the procedure. Electronically signed by: Santos Garrison MD (02/06/2022 2:58 PM) [id number]
--- NOTE | 2022-02-06 15:24 | PDOC4 ---
Operative Note Operative Note Operative Note: Preoperative Diagnosis: Calculus cholecystitis, perirectal abscess Postoperative Diagnosis: Same, choledocholithiasis Procedure: Laparoscopic cholecystectomy with intraoperative cholangiogram, I and D perirectal abscess Surgeons: [employer] Manager: VIRIDIANA Doherty Anesthesia: Gen. Estimated Blood Loss: 10 mL Specimen: Gallbladder to pathology Drains: 19 [place] Islander SCOT drain to gallbladder fossa Complications: None Indications: The patient is a 51-year-old female who was admitted with abdominal pain. Her evaluation was consistent with calculus cholecystitis.. Surgical treatment was offered by means of a laparoscopic cholecystectomy. The risks of surgery were discussed which include bleeding, infection, bile duct injury, bile leak, pain, the potential for additional surgeries or procedures. The patient understands and would like to proceed. In addition she has had problems related to a perirectal abscess which will be evaluated and treated during surgery as well. Description: The patient was taken to the operating room and laid supine on the operating table. General anesthesia was performed. The abdomen was prepped with ChloraPrep and draped in a standard surgical fashion. A small infraumbilical incision was made with a scalpel. The Veress needle was then inserted and a pneumoperitoneum was then created. A 5 mm trocar was then inserted and the laparoscope was introduced. In the upper midabdomen a 5 mm tr ocar was inserted and in the right upper quadrant one 5 mm trocar and one 2.3 mm mini lap grasper were inserted. The gallbladder was retracted cephalad. The cystic duct was dissected free from surrounding tissues. One clip was placed on the duct near the gallbladder junction. An opening was made in the duct and a cholangiocatheter placed within and secured with a clip. Using contrast dye and fluoroscopy an intraoperative cholangiogram was performed. This showed filling defects in the distal common duct consistent with stones. In particular there appeared to be obstruction from a stone at the ampulla. The clip and catheter were then withdrawn. Three clips were placed on the cystic duct and it was divided. The cystic artery was then identified, dissected free, doubly clipped and divided as well. The gallbladder was then mobilized away from the liver with cautery. The umbilical 5 millimeter trocar was exchanged for an 11 millimeter trocar. A 19 [place] SCOT drain was left in the right upper quadrant wi th an exit site in the right lateral port incision. This was secured to the skin with 2-0 silk. The gallbladder was then placed in an endoscopic bag and extracted at the umbilical trocar site. The fascia there was closed with an 0 Vicryl suture and infiltrated with 0.5% marcaine. All blood and irrigation fluid was suctioned and hemostasis was good. The remaining ports were removed and the pneumoperitoneum was relieved. The skin incisions were closed using 4-0 Monocryl suture. Steri-Strips and dressings were then applied. The patient was then rolled with her left side down exposing the right gluteus. The perirectal skin was prepped with Betadine and draped in a standard surgical manner. Initial inspection showed a small opening in the skin. With a scalpel this was opened further revealing what appeared to be a perirectal abscess cavity. There was minimal active drainage suggesting it had spontaneously decompressed. The cavity was washed out and a sterile gauze dressing was applied. The patient to lerated the procedure well and was sent to the recovery room in stable condition. At the end of the case all counts were correct. BLANKA ANDERSON MD Feb 06, 2022 15:24
[2022-02-06] MEDS ORDERED: PROCHLORPERAZINE 10 MG/2 ML VIAL. ONE (15:50)
[2022-02-06] MEDS ORDERED: MORPHINE SULFATE 2 MG/ML INJ. ONE (15:50)
--- NOTE | 2022-02-06 15:54 | PDOC2 ---
GI CONSULT Date of Service: DATE: 02/06/22 TIME: 15:30 Reason For Consult: CBD stones, ERCP HPI: HPI: 51 y/o female admitted through ER on 02/05/22 w/ post-prandial upper abdominal pain and vomiting. Similar symptoms in past (for several years, more frequent over the past week). Noted w/ abnormal LFTs (bili 1, AST 273, ALT 219, Alk Phos 129) and cholelithiasis w/ +Mercado's sign and dilated CBD 6.6mm, also hepatic steatosis. S/p cholecystectomy and I&D perirectal abscess 02/06. IOC was abnormal w/ with multiple small filling defects in bile duct (air bubbles vs debris). D/w Dr. Oh - we are asked to see for possible ERCP/sphincterotomy. PMH: PMH: I&D left labia FH: Family History: No pertinent hx Social History: Smoke: No ALCOHOL: none Drugs: None ROS: Difficult to obtain - seen in PACU/waking up after surgery. Vitals: Vitals: Vital Signs Date Time Temp Pulse Resp B/P (MAP) Pulse Ox O2 Delivery O2 Flow Rate FiO2 02/06/22 12:25 98.6 82 15 125/71 95 Room Air 98.6 Labs: Labs: see HPI/EMR Allergies: Coded Allergies: No Known Drug Allergies (Unverified , 02/05/22) Medications: Current Medications Medications (Trade) Dose Ordered Sig/Nikita Route PRN Reason Start Time Stop Time Status Last Admin Dose Admin Bupivacaine HCl/ Epinephrine Bitart (Sensorcain-Epi 0.5% Kit) 30 ml STK-MED ONCE .ROUTE 02/06/22 13:31 02/06/22 13:31 DC 02/06/22 14:44 Iohexol (Omnipaque 300 Mg/ml) 50 ml STK-MED ONCE .ROUTE 02/06/22 13:31 02/06/22 13:31 DC 02/06/22 14:44 Imaging: Imaging: Abd US 02/05 Findings: Pancreas: Poorly visualized due to overlying bowel gas Liver: The liver measures 14.2 cm. Liver echotexture is diffusely echogenic. No focal hepatic lesions. Hepatopetal flow in the portal vein. Gallbladder: Distended gallbladder containing numerous echogenic gallstones. Wall thickening measuring 4.7 mm. The sonographic Mercado's sign is reportedly positive. Bile ducts: The common duct measures 6.6 mm. Right kidney: 10.7 cm length. No mass or hydronephrosis. Aorta/IVC: Visualized portions are unremarkable. Other: No ascites. Impression: 1. Cholelithiasis with gallbladder wall thickening and positive sonographic Mercado sign consistent with acute cholecystitis. 2. Hepatic steatosis. 3. Common bile duct measuring at the upper limits of normal. IOC 02/06 IMPRESSION: The limited saved images show surgical instruments at the upper abdomen with contrast injection of the bile duct with contrast seen within the common bile duct. There are multiple small filling defects within which could be from either air bubble or stone/debris within the bile ducts. No significant contrast is seen extending into the duodenum which could be secondary to early injection but obstruction at common bile duct is not excluded. Preoperative Diagnosis: Calculus cholecystitis, perirectal abscess Postoperative Diagnosis: Same, choledocholithiasis Procedure: Laparoscopic cholecystectomy with intraoperative cholangiogram, I and D perirectal abscess PE: GEN: NAD - seen in PACU HEENT: Atraumatic, PERRL LUNGS: CTAB, has breathing mask HEART: RRR ABD: soft, non-distended, SCOT sanguineous, quiet BS EXTREMITY: No edema SKIN: No rashes, no jaundice NEURO/PSYCH: drowsy, will awaken when name called, asks if surgery is finished A/P: A/P: Symptomatic cholelithiasis s/p cholecystectomy (and I&D perirectal abscess), abnormal IOC/possible choledocholithiasis Abnormal LFTs Hepatic steatosis Rapid COVID negative -- Agree w/ rechecking LFTs in a.m. Will discuss possible need for MRCP/ERCP with her then when more awake - drowsy in PACU this afternoon. MEÑO CORLEY Feb 06, 2022 15:54
[2022-02-06] MEDS: MORPHINE SULFATE 2 MG/ML INJ. IVP PRN ×4 (15:55→23:41)
[2022-02-06] MEDS ORDERED: KETOROLAC 30 MG/ML VIAL. IVP ONE (16:15)
[2022-02-07] VITALS (11 sets, daily range): BP systolic 103–127; BP diastolic 58–78
[2022-02-07 05:40] LABS: ALBUMIN 3.4 g/dL (3.4-5.0); DIRECT BILIRUBIN 0.1 mg/dL (0.0-0.2); TOTAL BILIRUBIN 0.3 mg/dL (0.2-1.0); TOTAL PROTEIN 7.8 g/dL (6.4-8.2)
[2022-02-07] MEDS: MORPHINE SULFATE 2 MG/ML INJ. IVP PRN ×3 (08:33→23:38)
--- NOTE | 2022-02-07 09:06 | PDOC ---
SURGICAL PROGRESS NOTE DATE: 02/07/22 TIME: 09:04 Subjective sore, no nausea Vital Signs Vital Signs Date Time Temp Pulse Resp B/P (MAP) Pulse Ox O2 Delivery O2 Flow Rate FiO2 02/07/22 08:33 Nasal Cannula 3.0 02/07/22 07:15 98.2 79 16 110/60 (77) 97 98.2 I&O Intake and Output 02/07/22 07:00 Intake Total 2100 ml Output Total 10 ml Balance 2090 ml Intake Oral 100 ml IV Total 2000 ml Output Estimated Blood Loss 10 ml # Voids 2 General: Alert, Oriented X3, Cooperative Abdomen: Soft, Other (carlos serosang, lap dressings dry) Skin: Other (minimal drainage from wound ) Labs Laboratory Tests Test 02/05/22 14:09 02/07/22 04:35 Coronavirus (COVID-19)(PCR) Not detected (NOT DETECTD) SARS-CoV-2 Antigen (Rapid) Negative (NEGATIVE) Total Bilirubin 0.3 mg/dL (0.2-1.0) Direct Bilirubin 0.1 mg/dL (0.0-0.2) Aspartate Amino Transf (AST/SGOT) 78 U/L (15-37) Alanine Aminotransferase (ALT/SGPT) 198 U/L (14-59) Alkaline Phosphatase 121 U/L (46-116) Total Protein 7.8 g/dL (6.4-8.2) Albumin 3.4 g/dL (3.4-5.0) Laboratory Tests Test 02/07/22 04:35 Total Bilirubin 0.3 mg/dL (0.2-1.0) Direct Bilirubin 0.1 mg/dL (0.0-0.2) Aspartate Amino Transf (AST/SGOT) 78 U/L (15-37) Alanine Aminotransferase (ALT/SGPT) 198 U/L (14-59) Alkaline Phosphatase 121 U/L (46-116) Total Protein 7.8 g/dL (6.4-8.2) Albumin 3.4 g/dL (3.4-5.0) Problem List Problems Medical Problems: (1) Abdominal pain, acute, epigastric Status: Acute (2) Acute vomiting Status: Acute (3) Cholecystitis Status: Acute (4) Right upper quadrant abdominal pain Status: Acute Assessment/Plan s/p edwin ERCP today Justicifation of Admission Dx: Justifications for Admission: Justification of Admission Dx: Yes Comments: cholecystitis RIANA COREAS APRN Feb 07, 2022 09:06
--- NOTE | 2022-02-07 09:37 | PDOC ---
Date of Service: DATE: 02/07/22 TIME: 09:31 Subjective: Subjective: Pain 7/10 but says better. No nausea. Passing flatus. Objective: Objective: D/w nurse - barely any drain output. Vital Signs: Vital Signs Date Time Temp Pulse Resp B/P (MAP) Pulse Ox O2 Delivery O2 Flow Rate FiO2 02/07/22 08:33 Nasal Cannula 3.0 02/07/22 07:15 98.2 79 16 110/60 (77) 97 98.2 Labs: Laboratory Tests Test 02/07/22 04:35 Total Bilirubin 0.3 mg/dL Direct Bilirubin 0.1 mg/dL Aspartate Amino Transf (AST/SGOT) 78 U/L Alanine Aminotransferase (ALT/SGPT) 198 U/L Alkaline Phosphatase 121 U/L Total Protein 7.8 g/dL Albumin 3.4 g/dL PE: GEN: NAD LUNGS: clear, NC 3L HEART: RRR ABD: soft, quiet gurgles, epigastric discomfort, drain dark serous NEURO/PSYCH: A & O 3, speaks a little Armenian A/P: S/p cholecystectomy w/ abnormal IOC, concern for choledocholithiasis Abnormal LFTs - better COVID negative -- Discussed w/ Dr. Clark - plan for ERCP this afternoon. Discussed indications for procedure and possible associated risks including post-ERCP pancreatitis - translation help from ANGELA Lemus - pt agreeable and wants to proceed. Mentions several times she hasn't eaten in 2 days - advised to remain NPO for now, possibly clears sparingly after ERCP. Justicifation of Admission Dx: Justifications for Admission: Justification of Admission Dx: Yes MEÑO CORLEY Feb 07, 2022 09:37
[2022-02-07] MEDS: PANTOPRAZOLE IV PUSH 40 MG VIAL. IVP SCH (11:20)
[2022-02-07 11:36] LABS: PROTHROMBIN TIME PATIENT 13.4 SEC (11.7-14.0)
[2022-02-07] MEDS ORDERED: IOHEXOL 300 MG/ML 100ML VIAL. ONE (12:01)
[2022-02-07] MEDS ORDERED: PROPOFOL 10 MG/ML (20ML) VIAL. IV ONE ×2 (12:08)
[2022-02-07] MEDS ORDERED: SUCCINYLCHOLINE 200 MG/10 ML VIAL. ONE (12:08)
[2022-02-07] MEDS ORDERED: LIDOCAINE 2% PF 5 ML VIAL. ONE (12:08)
[2022-02-07] MEDS ORDERED: ePHEDrine PF IN SALINE 50 MG/10 ML SYRINGE. IV ONE (12:08)
[2022-02-07] MEDS ORDERED: ROCURONIUM 50 MG/5 ML VIAL. ONE (12:09)
[2022-02-07] MEDS ORDERED: ONDANSETRON PF 4 MG/2 ML VIAL. ONE (12:09)
[2022-02-07] MEDS ORDERED: DEXAMETHASONE SOD PHOS 4 MG/ML VIAL ONE (12:09)
--- NOTE | 2022-02-07 13:21 | PDOC4 ---
Operative Note Operative Note EGD/attempted ERCP Meds propofol per anesthesia Pre-op dx retained CBD stone/abnl IOC post-op dx unsuccessful ERCp without cannulation due to redundant pappilla non-erosive gastritis Plan advance diet o/p ercp at [facility] BLANKA OAKES MD Feb 07, 2022 13:21
--- NOTE | 2022-02-07 13:30 | NUR ---
wound care patient off the unit at this time, wound care will f/u 02/08/22
[2022-02-07] MEDS: POTASSIUM CL 20MEQ D5-0.45NACL 1,000 ML IV SCH ×2 (14:33→23:49)
[2022-02-08 03:12] VITALS: BP 127/68
[2022-02-08] MEDS: PANTOPRAZOLE IV PUSH 40 MG VIAL. IVP SCH (06:18)
[2022-02-08] MEDS: MORPHINE SULFATE 2 MG/ML INJ. IVP PRN (06:21)
[2022-02-08 07:00] VITALS: BP 114/71
[2022-02-08 07:20] LABS: BASO % 0 % (0-3); EOS % 0 % (0-3); HEMATOCRIT 33.3 % (36.0-47.0); HEMOGLOBIN 10.7 g/dL (12.0-15.5); LYMPH # 1.8 x10^3/uL (1.0-4.8); LYMPH % 23 % (24-48); MEAN CORPUSCULAR HEMOGLOBIN 26 pg (25-35); MEAN CORPUSCULAR HGB CONC 32 g/dL (31-37); MEAN CORPUSCULAR VOLUME 82 fL (79-100); MONO # 0.5 x10^3/uL (0.0-1.1); MONO % 7 % (0-9); NEUT # 5.6 x10^3/uL (1.8-7.7); NEUT % 70 % (31-73); PLATELET COUNT 247 x10^3/uL (140-400); RED BLOOD COUNT 4.09 x10^6/uL (3.50-5.40); RED CELL DISTRIBUTION WIDTH 14.1 % (11.5-14.5)
[2022-02-08 07:28] LABS: PROTHROMBIN TIME PATIENT 13.8 SEC (11.7-14.0)
[2022-02-08 07:46] LABS: ALBUMIN 3.1 g/dL (3.4-5.0); ALBUMIN/GLOBULIN RATIO 0.8 (1.0-1.7); CREATININE 0.8 mg/dL (0.6-1.0); GFR 76.2; POTASSIUM 3.7 mmol/L (3.5-5.1); TOTAL BILIRUBIN 0.3 mg/dL (0.2-1.0); TOTAL PROTEIN 7.2 g/dL (6.4-8.2)
--- NOTE | 2022-02-08 08:57 | PDOC ---
SURGICAL PROGRESS NOTE DATE: 02/08/22 TIME: 08:55 Subjective resting tolerating clears pain managed Vital Signs Vital Signs Date Time Temp Pulse Resp B/P (MAP) Pulse Ox O2 Delivery O2 Flow Rate FiO2 02/08/22 07:00 98.2 54 18 114/71 (85) 96 Room Air 98.2 02/07/22 13:15 4.0 I&O Intake and Output 02/08/22 07:00 Intake Total 428 ml Output Total 26 ml Balance 402 ml Intake Oral 130 ml IV Total 298 ml Output Urine Total 1 ml Drainage Total 25 ml General: Alert, Oriented X3, Cooperative Abdomen: Soft, Other (carlos serosang) Labs Laboratory Tests Test 02/07/22 04:35 02/07/22 10:45 02/08/22 06:10 Total Bilirubin 0.3 mg/dL (0.2-1.0) 0.3 mg/dL (0.2-1.0) Direct Bilirubin 0.1 mg/dL (0.0-0.2) Aspartate Amino Transf (AST/SGOT) 78 U/L (15-37) 40 U/L (15-37) Alanine Aminotransferase (ALT/SGPT) 198 U/L (14-59) 137 U/L (14-59) Alkaline Phosphatase 121 U/L (46-116) 90 U/L (46-116) Total Protein 7.8 g/dL (6.4-8.2) 7.2 g/dL (6.4-8.2) Albumin 3.4 g/dL (3.4-5.0) 3.1 g/dL (3.4-5.0) Prothrombin Time 13.4 SEC (11.7-14.0) 13.8 SEC (11.7-14.0) Prothromb Time International Ratio 1.1 (0.8-1.1) 1.1 (0.8-1.1) White Blood Count 8.0 x10^3/uL (4.0-11.0) Red Blood Count 4.09 x10^6/uL (3.50-5.40) Hemoglobin 10.7 g/dL (12.0-15.5) Hematocrit 33.3 % (36.0-47.0) Mean Corpuscular Volume 82 fL (79-100) Mean Corpuscular Hemoglobin 26 pg (25-35) Mean Corpuscular Hemoglobin Concent 32 g/dL (31-37) Red Cell Distribution Width 14.1 % (11.5-14.5) Platelet Count 247 x10^3/uL (140-400) Neutrophils (%) (Auto) 70 % (31-73) Lymphocytes (%) (Auto) 23 % (24-48) Monocytes (%) (Auto) 7 % (0-9) Eosinophils (%) (Auto) 0 % (0-3) Basophils (%) (Auto) 0 % (0-3) Neutrophils # (Auto) 5.6 x10^3/uL (1.8-7.7) Lymphocytes # (Auto) 1.8 x10^3/uL (1.0-4.8) Monocytes # (Auto) 0.5 x10^3/uL (0.0-1.1) Eosinophils # (Auto) 0.0 x10^3/uL (0.0-0.7) Basophils # (Auto) 0.0 x10^3/uL (0.0-0.2) Sodium Level 142 mmol/L (136-145) Potassium Level 3.7 mmol/L (3.5-5.1) Chloride Level 106 mmol/L (98-107) Carbon Dioxide Level 27 mmol/L (21-32) Anion Gap 9 (6-14) Blood Urea Nitrogen 6 mg/dL (7-20) Creatinine 0.8 mg/dL (0.6-1.0) Estimated GFR (Cockcroft-Gault) 76.2 BUN/Creatinine Ratio 8 (6-20) Glucose Level 118 mg/dL (70-99) Calcium Level 8.0 mg/dL (8.5-10.1) Albumin/Globulin Ratio 0.8 (1.0-1.7) Laboratory Tests Test 02/07/22 10:45 02/08/22 06:10 Prothrombin Time 13.4 SEC (11.7-14.0) 13.8 SEC (11.7-14.0) Prothromb Time International Ratio 1.1 (0.8-1.1) 1.1 (0.8-1.1) White Blood Count 8.0 x10^3/uL (4.0-11.0) Red Blood Count 4.09 x10^6/uL (3.50-5.40) Hemoglobin 10.7 g/dL (12.0-15.5) Hematocrit 33.3 % (36.0-47.0) Mean Corpuscular Volume 82 fL (79-100) Mean Corpuscular Hemoglobin 26 pg (25-35) Mean Corpuscular Hemoglobin Concent 32 g/dL (31-37) Red Cell Distribution Width 14.1 % (11.5-14.5) Platelet Count 247 x10^3/uL (140-400) Neutrophils (%) (Auto) 70 % (31-73) Lymphocytes (%) (Auto) 23 % (24-48) Monocytes (%) (Auto) 7 % (0-9) Eosinophils (%) (Auto) 0 % (0-3) Basophils (%) (Auto) 0 % (0-3) Neutrophils # (Auto) 5.6 x10^3/uL (1.8-7.7) Lymphocytes # (Auto) 1.8 x10^3/uL (1.0-4.8) Monocytes # (Auto) 0.5 x10^3/uL (0.0-1.1) Eosinophils # (Auto) 0.0 x10^3/uL (0.0-0.7) Basophils # (Auto) 0.0 x10^3/uL (0.0-0.2) Sodium Level 142 mmol/L (136-145) Potassium Level 3.7 mmol/L (3.5-5.1) Chloride Level 106 mmol/L (98-107) Carbon Dioxide Level 27 mmol/L (21-32) Anion Gap 9 (6-14) Blood Urea Nitrogen 6 mg/dL (7-20) Creatinine 0.8 mg/dL (0.6-1.0) Estimated GFR (Cockcroft-Gault) 76.2 BUN/Creatinine Ratio 8 (6-20) Glucose Level 118 mg/dL (70-99) Calcium Level 8.0 mg/dL (8.5-10.1) Total Bilirubin 0.3 mg/dL (0.2-1.0) Aspartate Amino Transf (AST/SGOT) 40 U/L (15-37) Alanine Aminotransferase (ALT/SGPT) 137 U/L (14-59) Alkaline Phosphatase 90 U/L (46-116) Total Protein 7.2 g/dL (6.4-8.2) Albumin 3.1 g/dL (3.4-5.0) Albumin/Globulin Ratio 0.8 (1.0-1.7) Problem List Problems Medical Problems: (1) Abdominal pain, acute, epigastric Status: Acute (2) Acute vomiting Status: Acute (3) Cholecystitis Status: Acute (4) Right upper quadrant abdominal pain Status: Acute Assessment/Plan s/p edwin D/w GI--outpt ERCP needed, will leave drain in place FU in clinic after ERCP for drain removal can dc when medically ready Justicifation of Admission Dx: Justifications for Admission: Justification of Admission Dx: Yes RIANA COREAS BILINGUAL INSTRUCTOR Feb 08, 2022 08:57
--- NOTE | 2022-02-08 09:16 | PDOC ---
Date of Service: DATE: 02/08/22 TIME: 09:12 Subjective: Subjective: Less pain. Hungry. Objective: Vital Signs: Vital Signs Date Time Temp Pulse Resp B/P (MAP) Pulse Ox O2 Delivery O2 Flow Rate FiO2 02/08/22 07:00 98.2 54 18 114/71 (85) 96 Room Air 98.2 02/07/22 13:15 4.0 Labs: Laboratory Tests Test 02/07/22 10:45 02/08/22 06:10 Prothrombin Time 13.4 SEC 13.8 SEC Prothromb Time International Ratio 1.1 1.1 White Blood Count 8.0 x10^3/uL Red Blood Count 4.09 x10^6/uL Hemoglobin 10.7 g/dL Hematocrit 33.3 % Mean Corpuscular Volume 82 fL Mean Corpuscular Hemoglobin 26 pg Mean Corpuscular Hemoglobin Concent 32 g/dL Red Cell Distribution Width 14.1 % Platelet Count 247 x10^3/uL Neutrophils (%) (Auto) 70 % Lymphocytes (%) (Auto) 23 % Monocytes (%) (Auto) 7 % Eosinophils (%) (Auto) 0 % Basophils (%) (Auto) 0 % Neutrophils # (Auto) 5.6 x10^3/uL Lymphocytes # (Auto) 1.8 x10^3/uL Monocytes # (Auto) 0.5 x10^3/uL Eosinophils # (Auto) 0.0 x10^3/uL Basophils # (Auto) 0.0 x10^3/uL Sodium Level 142 mmol/L Potassium Level 3.7 mmol/L Chloride Level 106 mmol/L Carbon Dioxide Level 27 mmol/L Anion Gap 9 Blood Urea Nitrogen 6 mg/dL Creatinine 0.8 mg/dL Estimated GFR (Cockcroft-Gault) 76.2 BUN/Creatinine Ratio 8 Glucose Level 118 mg/dL Calcium Level 8.0 mg/dL Total Bilirubin 0.3 mg/dL Aspartate Amino Transf (AST/SGOT) 40 U/L Alanine Aminotransferase (ALT/SGPT) 137 U/L Alkaline Phosphatase 90 U/L Total Protein 7.2 g/dL Albumin 3.1 g/dL Albumin/Globulin Ratio 0.8 Imaging: EGD/attempted ERCP 02/07/22 Pre-op dx retained CBD stone/abnl IOC post-op dx unsuccessful ERCp without cannulation due to redundant pappilla non-erosive gastritis Plan advance diet o/p ercp at [facility] PE: GEN: NAD LUNGS: CTAB HEART: RRR ABD: quiet BS, non-distended, mild epigastric discomfort - less, minimal drain output - reddish NEURO/PSYCH: A & O 3 A/P: S/p cholecystectomy w/ abnormal IOC, concern for choledocholithiasis - ERCP attempt unsuccessful due to anatomy as above Elevated AST and ALT - better - Alk Phos now normal -- Discussed w/ pt - will refer to [facility] for ERCP there. Drain will remain in place til after ERCP. Dc per primary. Justicifation of Admission Dx: Justifications for Admission: Justification of Admission Dx: Yes MEÑO CORLEY Feb 08, 2022 09:16
[2022-02-08] MEDS ORDERED: PANT20TA2 PO (09:50)
--- NOTE | 2022-02-08 09:55 | NUR ---
SW following. Discussed with RN, discharge order for home with self care. RN advised no SW needs.
[2022-02-08] MEDS ORDERED: OXYC-325 PO (10:35)
--- NOTE | 2022-02-08 12:47 | NUR ---
Pt IV removed and then provided with discharge medications and instructions for follow up. Pt was taken to ER entrance by wheelchair accompanied by US and significant other
--- NOTE | 2022-02-08 16:35 | PDOC ---
[employer] PROGRESS NOTE Date of Service DOS: DATE: 02/07/22 TIME: 16:34 Chief Complaint Chief Complaint PT seen 02/07 Acute calculous cholecystitis surg done History of Present Illness History of Present Illness OR today FEN - NPO, will adat after surg, PPX - SCDs Vitals/I&O Vitals/I&O: Vital Signs Date Time Temp Pulse Resp B/P (MAP) Pulse Ox O2 Delivery O2 Flow Rate FiO2 02/08/22 08:00 Room Air 4.0 02/08/22 07:00 98.2 54 18 114/71 (85) 96 98.2 I & O 02/07/22 02/07/22 02/08/22 15:00 23:00 07:00 Intake Total 428 ml 0 ml Output Total 26 ml Balance 402 ml 0 ml Physical Exam General: Alert, Oriented X3, Cooperative Heart: Regular rate, Normal S1, Normal S2 Abdomen: Soft, Other (carlos serosang) Extremities: No clubbing, No cyanosis Skin: Other (minimal drainage from wound near perianal area) Labs Labs: Laboratory Tests Test 02/08/22 06:10 White Blood Count 8.0 x10^3/uL (4.0-11.0) Red Blood Count 4.09 x10^6/uL (3.50-5.40) Hemoglobin 10.7 g/dL (12.0-15.5) Hematocrit 33.3 % (36.0-47.0) Mean Corpuscular Volume 82 fL (79-100) Mean Corpuscular Hemoglobin 26 pg (25-35) Mean Corpuscular Hemoglobin Concent 32 g/dL (31-37) Red Cell Distribution Width 14.1 % (11.5-14.5) Platelet Count 247 x10^3/uL (140-400) Neutrophils (%) (Auto) 70 % (31-73) Lymphocytes (%) (Auto) 23 % (24-48) Monocytes (%) (Auto) 7 % (0-9) Eosinophils (%) (Auto) 0 % (0-3) Basophils (%) (Auto) 0 % (0-3) Neutrophils # (Auto) 5.6 x10^3/uL (1.8-7.7) Lymphocytes # (Auto) 1.8 x10^3/uL (1.0-4.8) Monocytes # (Auto) 0.5 x10^3/uL (0.0-1.1) Eosinophils # (Auto) 0.0 x10^3/uL (0.0-0.7) Basophils # (Auto) 0.0 x10^3/uL (0.0-0.2) Prothrombin Time 13.8 SEC (11.7-14.0) Prothromb Time International Ratio 1.1 (0.8-1.1) Sodium Level 142 mmol/L (136-145) Potassium Level 3.7 mmol/L (3.5-5.1) Chloride Level 106 mmol/L (98-107) Carbon Dioxide Level 27 mmol/L (21-32) Anion Gap 9 (6-14) Blood Urea Nitrogen 6 mg/dL (7-20) Creatinine 0.8 mg/dL (0.6-1.0) Estimated GFR (Cockcroft-Gault) 76.2 BUN/Creatinine Ratio 8 (6-20) Glucose Level 118 mg/dL (70-99) Calcium Level 8.0 mg/dL (8.5-10.1) Total Bilirubin 0.3 mg/dL (0.2-1.0) Aspartate Amino Transf (AST/SGOT) 40 U/L (15-37) Alanine Aminotransferase (ALT/SGPT) 137 U/L (14-59) Alkaline Phosphatase 90 U/L (46-116) Total Protein 7.2 g/dL (6.4-8.2) Albumin 3.1 g/dL (3.4-5.0) Albumin/Globulin Ratio 0.8 (1.0-1.7) Assessment and Plan Assessmemt and Plan Problems Medical Problems: (1) Abdominal pain, acute, epigastric Status: Acute (2) Acute vomiting Status: Acute (3) Cholecystitis Status: Acute (4) Right upper quadrant abdominal pain Status: Acute Comment Review of Relevant I have reviewed the following items rashid (where applicable) has been applied. Justifications for Admission Other Justification GALE MAC MD Feb 08, 2022 16:35
--- NOTE | 2022-02-08 16:38 | PDOC3 ---
Discharge Summary Visit Information Date of Admission: Feb 05, 2022 Date of Discharge: Feb 08, 2022 Final Diagnosis acute cholecystitis S/p cholecystectomy abnormal IOC, concern for other stone - ERCP attempt unsuccessful transaminitis .Problems Medical Problems: (1) Abdominal pain, acute, epigastric Status: Acute (2) Acute vomiting Status: Acute (3) Cholecystitis Status: Acute (4) Right upper quadrant abdominal pain Status: Acute Brief Hospital Course Allergies Allergies Coded Allergies Type Severity Reaction Last Updated Verified No Known Drug Allergies 02/07/22 No Vital Signs Vital Signs Date Time Temp Pulse Resp B/P (MAP) Pulse Ox O2 Delivery O2 Flow Rate FiO2 02/08/22 08:00 Room Air 4.0 02/08/22 07:00 98.2 54 18 114/71 (85) 96 98.2 Lab Results Laboratory Tests Test 02/07/22 04:35 02/07/22 10:45 02/08/22 06:10 Total Bilirubin 0.3 mg/dL (0.2-1.0) 0.3 mg/dL (0.2-1.0) Direct Bilirubin 0.1 mg/dL (0.0-0.2) Aspartate Amino Transf (AST/SGOT) 78 U/L (15-37) 40 U/L (15-37) Alanine Aminotransferase (ALT/SGPT) 198 U/L (14-59) 137 U/L (14-59) Alkaline Phosphatase 121 U/L (46-116) 90 U/L (46-116) Total Protein 7.8 g/dL (6.4-8.2) 7.2 g/dL (6.4-8.2) Albumin 3.4 g/dL (3.4-5.0) 3.1 g/dL (3.4-5.0) Prothrombin Time 13.4 SEC (11.7-14.0) 13.8 SEC (11.7-14.0) Prothromb Time International Ratio 1.1 (0.8-1.1) 1.1 (0.8-1.1) White Blood Count 8.0 x10^3/uL (4.0-11.0) Red Blood Count 4.09 x10^6/uL (3.50-5.40) Hemoglobin 10.7 g/dL (12.0-15.5) Hematocrit 33.3 % (36.0-47.0) Mean Corpuscular Volume 82 fL (79-100) Mean Corpuscular Hemoglobin 26 pg (25-35) Mean Corpuscular Hemoglobin Concent 32 g/dL (31-37) Red Cell Distribution Width 14.1 % (11.5-14.5) Platelet Count 247 x10^3/uL (140-400) Neutrophils (%) (Auto) 70 % (31-73) Lymphocytes (%) (Auto) 23 % (24-48) Monocytes (%) (Auto) 7 % (0-9) Eosinophils (%) (Auto) 0 % (0-3) Basophils (%) (Auto) 0 % (0-3) Neutrophils # (Auto) 5.6 x10^3/uL (1.8-7.7) Lymphocytes # (Auto) 1.8 x10^3/uL (1.0-4.8) Monocytes # (Auto) 0.5 x10^3/uL (0.0-1.1) Eosinophils # (Auto) 0.0 x10^3/uL (0.0-0.7) Basophils # (Auto) 0.0 x10^3/uL (0.0-0.2) Sodium Level 142 mmol/L (136-145) Potassium Level 3.7 mmol/L (3.5-5.1) Chloride Level 106 mmol/L (98-107) Carbon Dioxide Level 27 mmol/L (21-32) Anion Gap 9 (6-14) Blood Urea Nitrogen 6 mg/dL (7-20) Creatinine 0.8 mg/dL (0.6-1.0) Estimated GFR (Cockcroft-Gault) 76.2 BUN/Creatinine Ratio 8 (6-20) Glucose Level 118 mg/dL (70-99) Calcium Level 8.0 mg/dL (8.5-10.1) Albumin/Globulin Ratio 0.8 (1.0-1.7) Laboratory Tests Test 02/08/22 06:10 White Blood Count 8.0 x10^3/uL (4.0-11.0) Red Blood Count 4.09 x10^6/uL (3.50-5.40) Hemoglobin 10.7 g/dL (12.0-15.5) Hematocrit 33.3 % (36.0-47.0) Mean Corpuscular Volume 82 fL (79-100) Mean Corpuscular Hemoglobin 26 pg (25-35) Mean Corpuscular Hemoglobin Concent 32 g/dL (31-37) Red Cell Distribution Width 14.1 % (11.5-14.5) Platelet Count 247 x10^3/uL (140-400) Neutrophils (%) (Auto) 70 % (31-73) Lymphocytes (%) (Auto) 23 % (24-48) Monocytes (%) (Auto) 7 % (0-9) Eosinophils (%) (Auto) 0 % (0-3) Basophils (%) (Auto) 0 % (0-3) Neutrophils # (Auto) 5.6 x10^3/uL (1.8-7.7) Lymphocytes # (Auto) 1.8 x10^3/uL (1.0-4.8) Monocytes # (Auto) 0.5 x10^3/uL (0.0-1.1) Eosinophils # (Auto) 0.0 x10^3/uL (0.0-0.7) Basophils # (Auto) 0.0 x10^3/uL (0.0-0.2) Prothrombin Time 13.8 SEC (11.7-14.0) Prothromb Time International Ratio 1.1 (0.8-1.1) Sodium Level 142 mmol/L (136-145) Potassium Level 3.7 mmol/L (3.5-5.1) Chloride Level 106 mmol/L (98-107) Carbon Dioxide Level 27 mmol/L (21-32) Anion Gap 9 (6-14) Blood Urea Nitrogen 6 mg/dL (7-20) Creatinine 0.8 mg/dL (0.6-1.0) Estimated GFR (Cockcroft-Gault) 76.2 BUN/Creatinine Ratio 8 (6-20) Glucose Level 118 mg/dL (70-99) Calcium Level 8.0 mg/dL (8.5-10.1) Total Bilirubin 0.3 mg/dL (0.2-1.0) Aspartate Amino Transf (AST/SGOT) 40 U/L (15-37) Alanine Aminotransferase (ALT/SGPT) 137 U/L (14-59) Alkaline Phosphatase 90 U/L (46-116) Total Protein 7.2 g/dL (6.4-8.2) Albumin 3.1 g/dL (3.4-5.0) Albumin/Globulin Ratio 0.8 (1.0-1.7) Brief Hospital Course Ms. Casas is a 51 old female admitted 02/05/22 w/ post-prandial upper abdominal pain and vomiting. recurrence of priro symtpoms Noted w/ abnormal LFTs (bili 1, AST 273, ALT 219, Alk Phos 129) and cholelithiasis US showed dilated CBD 6.6mm, hepatic steatosis. S/p cholecystectomy and I&D perirectal abscess 02/06. IOC was abnormal ESRD on 02/07 not successfull, rec f/u at Assessment Assessment small gisell area ulcer better, has been prior issue for her mult times, care plan recommended Discharge Information Condition at Discharge: Improved Follow Up: Weeks Disposition/Orders: D/C to Home Scheduled Multivitamin (Multi Vitamin Daily) 1 Each Tablet, 1 TAB PO DAILY for vitamin for 30 Days, #30 Ref 0 (Reported) Entered as Reported by: ABDOULAYE SARAH RN on 02/06/22 1233 Last Action: New Order on 02/06/22 123 by ABDOULAYE SARAH, ANGELA Pantoprazole Sodium (Protonix) 20 Mg Tablet.dr, 1 TAB PO DAILY for GERD, #30 Prescribed by: GALE MAC on 02/08/22 0950 Scheduled PRN Oxycodone HCl/Acetaminophen (Percocet 5-325 mg Tablet) 1 Each Tablet, 1 TAB PO Q 4HRS PRN for PAIN MDD 3 Tablet(s), #30 Ref 0 Prescribed by: GALE MAC on 02/08/22 1036 Patient Instructions Patient Instructions Discussed w/ pt - will refer to for ERCP there. Drain will remain in place til after ERCP. Dc per primary Justicifation of Admission Dx: Justifications for Admission: Justification of Admission Dx: Yes GALE MAC MD Feb 08, 2022 16:38
--- NOTE | 2022-02-08 17:08 | PATHOLOGY ---
[facility] Accession Number: [id number] . 01 Material submitted: . gallbladder - GALLBLADDER . 01 Clinical history: . CHOLECYSTITIS LAPAROSCOPIC CHOLECYSTECTOMY . 01 Frozen section diagnosis: . . /QMS . 02 Diagnosis: Gallbladder, laparoscopic cholecystectomy: - Cholelithiasis. - Cholesterolosis, focal. - Chronic cholecystitis. (JPM:sonia; 02/08/2022) QMS 02/08/2022 1538 Local . 02 Comment: There is no evidence of malignancy. (JPM:sonia; 02/08/2022) . 02 Electronically signed: . Lino Coley MD, Pathologist NPI- [id number] . 01 Gross description: . Fixative: Formalin Labeled: Gallbladder Specimen received: Previously disrupted gallbladder Dimensions: 6.4 x 3.1 x 2.7 cm Serosa: Pale doshi-pink and bile-stained, with light doshi-yellow to light green, shaggy and cauterized adventitia Lymph node: None identified Mucosa: Velvety and bile-stained Average wall thickness: 0.5 cm Calculi: Multiple dark doshi and granular calculi found within fundus, body, and neck measuring 2.3 x 2.3 x 0.2 cm. Abnormalities: None identified . 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 ([facility]; 02/07/2022) [facility] 02/07/2022 1616 Local . 02 Microscopic: . . . 02 Pathologist provided ICD-10: K80.10, K82.4 . 02 CPT . 048091 Specimen Comment: A courtesy copy of this report has been sent to [phone], [phone] Specimen Comment: [id number] Specimen Comment: Report sent to / DR WILKINSON Performed at: 01 [facility] [address], [place], [place] [id number] MD Jm Jack MD Phone: [phone] Performed at: 02 [facility] [address] [place], [place] [id number] MD Lino Coley MD Phone: [phone]
== END 2022-02-08 10:20 | disposition home or self-care (01) | DRG 418 ==
LOC: ER 04:45 → ED HOLD 07:40 → 4 NORTH 11:15
PROVIDERS: ADMIT Internal Medicine; ATTEND Internal Medicine
PROC: 0FT44ZZ Resection of Gallbladder, Percutaneous Endoscopic Approach (ICD-10-PCS; principal; 2022-02-05)
PROC: 0D9P4ZZ Drainage of Rectum, Percutaneous Endoscopic Approach (ICD-10-PCS; 2022-02-05)
PROC: BF101ZZ Fluoroscopy of Bile Ducts using Low Osmolar Contrast (ICD-10-PCS; 2022-02-05)
PROC: 0DJ08ZZ Inspection of Upper Intestinal Tract, Via Natural or Artificial Opening Endoscopic (ICD-10-PCS; 2022-02-05)
PROC: 0FJD8ZZ Inspection of Pancreatic Duct, Via Natural or Artificial Opening Endoscopic (ICD-10-PCS; 2022-02-05)
DX: K80.62 Calculus of gallbladder and bile duct with acute cholecystitis without obstruction (principal); K61.1 Rectal abscess; K29.70 Gastritis, unspecified, without bleeding; K76.0 Fatty (change of) liver, not elsewhere classified; Z20.822 Contact with and (suspected) exposure to COVID-19; Z82.49 Family history of ischemic heart disease and other diseases of the circulatory system; R74.01 Elevation of levels of liver transaminase levels
CPT/HCPCS: 36415; 43235; 74300; 74328; 76705; 80053; 80076; 81001; 81025; 83690; 85025; 85610; 87426; 88304; 96361; 96365; 96375; A4213; A4364; A4452; A4657; A4930; A6219; A6402; C1769; C1887; C9113; J0330; J0690; J0780; J1100; J1170; J1885; J2270; J2405; J2543; J2704; J3010; J3480; J3490; J7030; J7120; Q9967; U0003; 99285-25; G0378